=== PATIENT | female | born 1975 | race Two or more races ===

== ENCOUNTER 2017-05-14 16:06 | Emergency (ER) | payer BC ==
[~2017-05-14] VITALS: Ht 160 cm; Wt 72.6 kg
[~2017-05-14 16:06] MED LIST: ALPR0.5T PO; ALPR2TAB7 PO; FERR-38 PO; IBUP800T54 PO; THYR60TA2 PO; ZIPR20CA2 PO; [UNRECOGNIZED DRUG - OTHER]; [UNRECOGNIZED DRUG - OTHER]
[2017-05-14] MEDS ORDERED: HYDROMORPHONE 1 MG/1 ML DISP.SYRIN IM ONE ×2 (16:30→18:15)
[2017-05-14] MEDS ORDERED: PROMETHAZINE HCL 25 MG/1 ML VIAL IM ONE ×2 (16:30→18:15)
[2017-05-14] MEDS ORDERED: HYDROMORPHONE 2 MG/1 ML DISP.SYRIN ONE ×2 (16:47→18:36)
[2017-05-14] MEDS ORDERED: PROMETHAZINE HCL 25 MG/1 ML VIAL ONE ×2 (16:47→18:36)
[2017-05-14 16:54] LABS: *BILIRUBIN,URIN NEGATIVE (NEGATIVE); *BLOOD, URINE NEGATIVE (NEGATIVE); *CLARITY,URINE CLOUDY (CLEAR); *COLOR,URINE YELLOW (YELLOW); *KETONES,URINE NEGATIVE (NEGATIVE); *PROTEIN,URINE TRACE (NEGATIVE); *UROBILINOGEN,URINE 0.2 E.U./dl (NORMAL); LEUKOCYTE ESTERASE ,URINE 2+ (NEGATIVE); NITRITE, URINE NEGATIVE (NEGATIVE); UGLUCOSE NEGATIVE (NEGATIVE)
[2017-05-14 16:56] LABS: *URINE HCG, QUAL NEGATIVE (NEGATIVE)
[2017-05-14 17:04] LABS: BACTERIA,URINE MANY /HPF (NONE SEEN); MUCUS,URINE MODERATE /LPF (0-FEW); SQUAMOUS EPITHELIAL CELL,UR MODERATE /HPF (NONE SEEN); WBC,URINE 80-100 /HPF (0-3)
--- NOTE | 2017-05-14 17:06 | NUR ---
PT RESTING COMFORTABLY
[2017-05-14 17:08] LABS: BASOPHILS % (AUTO) 0.7 % (0.0-2.0); EOSINOPHILS # (AUTO) 0.2 K/uL (0.0-0.7); EOSINOPHILS % (AUTO) 3.2 % (0.0-7.0); HEMATOCRIT 28.5 % (31.2-41.9); HEMOGLOBIN 9.1 g/dL (10.9-14.3); LYMPHOCYTES # (AUTO) 2.3 K/uL (20.0-40.0); LYMPHOCYTES % (AUTO) 32.3 % (20.5-51.5); MEAN CORPUSCULAR HGB CONC 32 g/dL (32.3-35.6); MEAN CORPUSCULAR VOLUME 71.8 fL (75.5-95.3); MONOCYTES # (AUTO) 0.6 K/uL (2.0-10.0); MONOCYTES % (AUTO) 8.8 % (0.0-11.0); PLATELET COUNT (AUTO) 278 K/uL (179-408); RED BLOOD CELL COUNT(AUTO) 3.96 MIL/uL (3.63-4.92); WHITE BLOOD COUNT (AUTO) 7.2 K/uL (3.8-11.8)
[2017-05-14 17:38] LABS: BAND % (MANUAL) 3 % (0-10); EOSINOPHILS % (MANUAL) 3 % (0-8); LYMPHOCYTES % (MANUAL) 29 % (20-40); MONOCYTES % (MANUAL) 9 % (2-10); NEUTROPHILS % (MANUAL) 56 % (42-75)
[2017-05-14 18:29] VITALS: BP 140/83
--- NOTE | 2017-05-14 18:29 | NUR ---
Patient discharged to home in stable conditon. Written and verbal after care instructions given. Patient verbalizes understanding of instructions.
== END 2017-05-14 18:31 | disposition home or self-care (01) ==
LOC: ER 16:07
DX: N39.0 Urinary tract infection, site not specified (principal); B96.89 Other specified bacterial agents as the cause of diseases classified elsewhere; E03.9 Hypothyroidism, unspecified; M54.5 Low back pain; K21.9 Gastro-esophageal reflux disease without esophagitis; F17.200 Nicotine dependence, unspecified, uncomplicated; F42.9 Obsessive-compulsive disorder, unspecified
CPT/HCPCS: 36415; 72131; 73560; 84443; 84703; 85025; A4663; J1170; J2550

== ENCOUNTER 2017-07-31 23:03 | Emergency (ER) | payer BC ==
[~2017-07-31] VITALS: Ht 160 cm; Wt 68.0 kg
[2017-07-31 23:49] LABS: *BILIRUBIN,URIN NEGATIVE (NEGATIVE); *BLOOD, URINE NEGATIVE (NEGATIVE); *CLARITY,URINE CLEAR (CLEAR); *COLOR,URINE YELLOW (YELLOW); *KETONES,URINE TRACE (NEGATIVE); *PROTEIN,URINE TRACE (NEGATIVE); *UROBILINOGEN,URINE 0.2 E.U./dl (NORMAL); LEUKOCYTE ESTERASE ,URINE NEGATIVE (NEGATIVE); NITRITE, URINE NEGATIVE (NEGATIVE); UGLUCOSE NEGATIVE (NEGATIVE)
--- NOTE | 2017-07-31 23:50 | NUR ---
Dr. Toscano at bedside for MSE.
[2017-07-31 23:59] LABS: *URINE HCG, QUAL NEGATIVE (NEGATIVE); BACTERIA,URINE NONE SEEN /HPF (NONE SEEN); RBC,URINE NONE SEEN /HPF (0-3); SQUAMOUS EPITHELIAL CELL,UR MODERATE /HPF (NONE SEEN); WBC,URINE 0-3 /HPF (0-3)
--- NOTE | 2017-08-01 01:12 | NUR ---
Received report from lab, patient positive for influenza B, notified.
[2017-08-01] MEDS ORDERED: OSELTAMIVIR PHOSPHATE 75 MG CAPSULE ONE (01:42)
[2017-08-01] MEDS ORDERED: OSELTAMIVIR PHOSPHATE 75 MG CAPSULE PO ONE (01:45)
--- NOTE | 2017-08-01 01:52 | NUR ---
Patient discharged to home in stable conditon. Written and verbal after care instructions given. Patient verbalizes understanding of instructions. Patient ambulated out of ER with steady gait, lab records provided per patient request, VSS, no acute signs of distress.
[2017-08-01 01:53] VITALS: BP 120/79
== END 2017-08-01 01:54 | disposition home or self-care (01) ==
LOC: ER 23:09
DX: J10.1 Influenza due to other identified influenza virus with other respiratory manifestations (principal); K21.9 Gastro-esophageal reflux disease without esophagitis; E03.9 Hypothyroidism, unspecified; F17.210 Nicotine dependence, cigarettes, uncomplicated; Z79.1 Long term (current) use of non-steroidal anti-inflammatories (NSAID); Z79.899 Other long term (current) drug therapy
CPT/HCPCS: 36415; 71045; 84443; 84703; 87400; A4663

== ENCOUNTER 2017-10-09 18:43 | Emergency (ER) | payer BC ==
[~2017-10-09] VITALS: Ht 160 cm; Wt 68.9 kg
--- NOTE | 2017-10-09 19:04 | NUR ---
SBAR REPORT TO [place] [facility]
--- NOTE | 2017-10-09 19:08 | NUR ---
Dr. Sanders at bedside for MSE.
[2017-10-09] MEDS ORDERED: OXYCODONE/APAP 5-325 MG TABLET PO ONE ×2 (19:15→21:45)
[2017-10-09] MEDS ORDERED: VANCOMYCIN IV 1,000 MG in IV DEXTROSE 5% 250 ML IV ONE (19:15)
[2017-10-09] MEDS ORDERED: OXYCODONE/APAP 5-325 MG TABLET ONE ×2 (19:25→21:42)
[2017-10-09] MEDS ORDERED: VANCOMYCIN IV 200 ML ONE (19:26)
[2017-10-09] MEDS ORDERED: ONDANSETRON ODT 4 MG TAB.RAPDIS ONE (19:39)
[2017-10-09] MEDS ORDERED: ONDANSETRON ODT 4 MG TAB.RAPDIS SL ONE (19:45)
--- NOTE | 2017-10-09 20:40 | NUR ---
Pt states pain on both arms still around 7/10, has some nausea, but not to the point of vomiting.
[2017-10-09] MEDS ORDERED: ONDANSETRON 4 MG/2 ML VIAL IV ONE (20:45)
[2017-10-09] MEDS ORDERED: KETOROLAC TROMETHAMINE 30 MG INJ IVP ONE (20:45)
[2017-10-09] MEDS ORDERED: ONDANSETRON 4 MG/2 ML VIAL ONE (20:48)
[2017-10-09] MEDS ORDERED: KETOROLAC TROMETHAMINE 30 MG INJ ONE (20:49)
--- NOTE | 2017-10-09 21:30 | NUR ---
Patient concerned about increasing pain and redness on arms, reports has trouble getting pain medications in [facility], requesting for more pain meds and has some questions for the doctor. MD notified.
[2017-10-09] MEDS ORDERED: LIDOCAINE 5% PATCH TD ONE ×2 (21:42→21:45)
--- NOTE | 2017-10-09 21:47 | NUR ---
Patient discharged to home in stable conditon. Written and verbal after care instructions given. Patient verbalizes understanding of instructions. Patient ambulated out of ER with steady gait, no acute signs of distress, VSS, all belongings taken, IV site discontinued.
[2017-10-09 22:02] VITALS: BP 115/65
== END 2017-10-09 22:03 | disposition home or self-care (01) ==
LOC: ER 18:43
DX: L03.113 Cellulitis of right upper limb (principal); L03.114 Cellulitis of left upper limb; K21.9 Gastro-esophageal reflux disease without esophagitis; E03.9 Hypothyroidism, unspecified; F17.210 Nicotine dependence, cigarettes, uncomplicated; Z79.1 Long term (current) use of non-steroidal anti-inflammatories (NSAID); Z79.899 Other long term (current) drug therapy
CPT/HCPCS: 36415; 84443; A4663; J1885; J2405; J3370; Q0162

== ENCOUNTER 2017-10-12 21:56 | Emergency (ER) | payer SELFPAY ==
[~2017-10-12] VITALS: Ht 160 cm; Wt 68.0 kg
[~2017-10-12 21:56] MED LIST changes: -ALPR2TAB7 PO; -IBUP800T54 PO; -ZIPR20CA2 PO; -[UNRECOGNIZED DRUG - OTHER]; -[UNRECOGNIZED DRUG - OTHER]
--- NOTE | 2017-10-12 22:21 | NUR ---
Patient is AAox4. Able to speak in complete sentences. Responsive to verbal and tactile stimuli. Patient states she was given a prescription for Adderall 1 month ago. She began picking at her skin, and developed multiple areas of open skin to both arms. She has bilat. forearm abscess at this time. She was seen recently at this ER for the same issue, and was given antibiotics. The medication is helping the patient per her statement. She comes in now requesting I&D of both abscess , and requesting analgesics. Patient denies fevers, vomiting, nausea, chest pain, respiratory distress at this time. Respirations even and unlabored. no cardiovascular distress noted. no GI/ distress noted. Will continue to monitor patient.
[2017-10-12] MEDS ORDERED: SULFAMETH/TRIMETH 800/160 MG TABLET PO ONE (22:45)
[2017-10-12] MEDS ORDERED: LIDOCAINE HCL 1% 20 ML VIAL IJ ONE (22:45)
--- NOTE | 2017-10-12 22:46 | NUR ---
RANDOLPH LUJAN at bedside for I&D
--- NOTE | 2017-10-12 23:46 | NUR ---
I&D complete to both forearms. Patient sites cleaned, dry, wrapped with dry gauze
[2017-10-12] MEDS ORDERED: SULFAMETH/TRIMETH 800/160 MG TABLET ONE (23:47)
[2017-10-12] MEDS ORDERED: HYDROCODONE/APAP 10-325 MG TABLET ONE (23:54)
[2017-10-13] MEDS ORDERED: OXYCODONE/APAP 5-325 MG TABLET PO ONE
[2017-10-13] MEDS ORDERED: HYDROCODONE/APAP 10-325 MG TABLET PO ONE
--- NOTE | 2017-10-13 00:01 | NUR ---
Patient discharged to home in stable conditon. Written and verbal after care instructions given. Patient verbalizes understanding of instructions. Ambulated from Er with stable gait. All belongings with patient. Patient to be driven home by in private vehicle.
[2017-10-13] MEDS ORDERED: OXYCODONE/APAP 5-325 MG TABLET ONE (00:02)
[2017-10-13 00:03] VITALS: BP 137/82
== END 2017-10-13 00:07 | disposition home or self-care (01) ==
LOC: ER 21:58
DX: L02.414 Cutaneous abscess of left upper limb (principal); L02.413 Cutaneous abscess of right upper limb; E03.9 Hypothyroidism, unspecified; K21.9 Gastro-esophageal reflux disease without esophagitis; F17.200 Nicotine dependence, unspecified, uncomplicated
CPT/HCPCS: A4663; J3490

== ENCOUNTER 2017-10-14 20:08 | Emergency (ER) | payer SELFPAY ==
[~2017-10-14] VITALS: Ht 160 cm; Wt 65.8 kg
--- NOTE | 2017-10-14 20:34 | NUR ---
RANDOLPH LUJAN AT BEDSIDE FOR MSE.
[2017-10-14] MEDS ORDERED: LORAZEPAM 1 MG TABLET ONE (20:43)
[2017-10-14] MEDS ORDERED: MORPHINE SULFATE 4 MG/1 ML DISP.SYRIN ONE ×2 (20:44→21:28)
[2017-10-14] MEDS ORDERED: LORAZEPAM 0.5 MG TABLET PO ONE (20:45)
[2017-10-14] MEDS ORDERED: MORPHINE SULFATE 4 MG/1 ML DISP.SYRIN IM ONE ×2 (20:45→21:15)
[2017-10-14] MEDS ORDERED: LIDOCAINE HCL 2% 20 ML VIAL TP ONE (20:45)
--- NOTE | 2017-10-14 20:50 | NUR ---
I&D SET UP AT BEDSIDE.
--- NOTE | 2017-10-14 20:58 | NUR ---
RANDOLPH LUJAN AT BEDSIDE.
--- NOTE | 2017-10-14 21:49 | NUR ---
Patient discharged to home in stable conditon. Written and verbal after care instructions given. Patient verbalizes understanding of instructions. Patient left ER and walks in steady gait. Accompanied by mother who will drive home. All belongings with pt. VSS. No acute distress noted.
[2017-10-14 21:51] VITALS: BP 133/71
== END 2017-10-14 21:30 | disposition home or self-care (01) ==
LOC: ER 20:10
DX: L03.114 Cellulitis of left upper limb (principal); F17.200 Nicotine dependence, unspecified, uncomplicated
CPT/HCPCS: A4217; A4663; J2270

== ENCOUNTER 2020-05-21 21:54 | Emergency (ER) | payer MEDICAID, OTHER ==
[~2020-05-21] VITALS: Ht 160 cm; Wt 90.7 kg
[2020-05-21] MEDS ORDERED: LEVO125C4 PO (22:10)
[2020-05-21] MEDS ORDERED: VENL150C2 PO (22:10)
[2020-05-21] MEDS ORDERED: OLAN10TA3 PO (22:10)
[2020-05-21] MEDS ORDERED: ONDANSETRON 4 MG/2 ML VIAL IV ONE (22:45)
[2020-05-21] MEDS ORDERED: MORPHINE SULFATE 2 MG/1 ML DISP.SYRIN IV ONE (22:45)
[2020-05-21] MEDS ORDERED: IV NORMAL SALINE 1000 ML BAG IV ONE (22:45)
[2020-05-21 22:59] LABS: *BILIRUBIN,URIN NEGATIVE (NEGATIVE); *BLOOD, URINE NEGATIVE (NEGATIVE); *CLARITY,URINE CLEAR (CLEAR); *COLOR,URINE YELLOW (YELLOW); *KETONES,URINE TRACE (NEGATIVE); *UROBILINOGEN,URINE 0.2 E.U./dl (NORMAL); LEUKOCYTE ESTERASE ,URINE NEGATIVE (NEGATIVE); NITRITE, URINE NEGATIVE (NEGATIVE); UGLUCOSE NEGATIVE (NEGATIVE)
[2020-05-21] MEDS ORDERED: MORPHINE SULFATE 4 MG/1 ML DISP.SYRIN ONE (23:00)
[2020-05-21] MEDS ORDERED: ONDANSETRON 4 MG/2 ML VIAL ONE (23:00)
[2020-05-21 23:09] LABS: *URINE HCG, QUAL NEGATIVE (NEGATIVE)
[2020-05-21 23:11] LABS: RBC,URINE 0-3 /HPF (0-3)
[2020-05-21 23:12] LABS: BACTERIA,URINE NONE SEEN /HPF (NONE SEEN); SQUAMOUS EPITHELIAL CELL,UR MODERATE /HPF (NONE SEEN)
[2020-05-21 23:15] LABS: BILIRUBIN,DIRECT 0.1 mg/dL (0.0-0.2); BILIRUBIN,TOTAL 0.2 mg/dL (0.2-1.0); CREATININE 1.1 mg/dL (0.6-1.3); TOTAL PROTEIN, SERUM 7.8 g/dL (6.4-8.2)
[2020-05-21 23:23] LABS: BASOPHILS % (AUTO) 0.6 % (0.0-2.0); EOSINOPHILS # (AUTO) 0.1 K/uL (0.0-0.7); EOSINOPHILS % (AUTO) 0.8 % (0.0-7.0); HEMATOCRIT 31.1 % (31.2-41.9); LYMPHOCYTES # (AUTO) 1.5 K/uL (20.0-40.0); LYMPHOCYTES % (AUTO) 20.2 % (20.5-51.5); MEAN CORPUSCULAR HEMOGLOBIN 22.1 uug (24.7-32.8); MEAN CORPUSCULAR HGB CONC 32 g/dL (32.3-35.6); MEAN CORPUSCULAR VOLUME 68.9 fL (75.5-95.3); MONOCYTES # (AUTO) 0.5 K/uL (2.0-10.0); NEUTROPHILS # (AUTO) 5.4 K/uL (1.8-8.9); NEUTROPHILS % (AUTO) 71.4 % (38.5-71.5); PLATELET COUNT (AUTO) 297 K/uL (179-408); RED BLOOD CELL COUNT(AUTO) 4.52 MIL/uL (3.63-4.92); WHITE BLOOD COUNT (AUTO) 7.6 K/uL (3.8-11.8)
[2020-05-21] MEDS ORDERED: KETOROLAC TROMETHAMINE 30 MG INJ IVP ONE (23:45)
[2020-05-21] MEDS ORDERED: KETOROLAC TROMETHAMINE 30 MG INJ ONE (23:52)
[2020-05-22] MEDS ORDERED: MORPHINE SULFATE 4 MG/1 ML DISP.SYRIN IV ONE (00:15)
[2020-05-22] MEDS ORDERED: MORPHINE SULFATE 4 MG/1 ML DISP.SYRIN ONE (00:25)
[2020-05-22] MEDS ORDERED: MORPHINE SULFATE 2 MG/1 ML DISP.SYRIN ONE (00:26)
[2020-05-22] MEDS ORDERED: OXYCODONE/APAP 5-325 MG TABLET PO ONE (00:45)
[2020-05-22] MEDS ORDERED: OXYCODONE/APAP 5-325 MG TABLET ONE (00:54)
--- NOTE | 2020-05-22 01:00 | NUR ---
IV removed. Catheter intact and site benign. Pressure and 4x4 gauze applied to site. No bleeding noted.
--- NOTE | 2020-05-22 01:08 | NUR ---
Patient discharged to home in stable condition with taking patient home. Written and verbal after care instructions given. Patient verbalizes understanding of instructions. Stressed follow up or return to ER for worsening s/s.
[2020-05-22 01:09] VITALS: BP 100/67
[2020-05-22 04:40] LABS: LYMPHOCYTES % (MANUAL) 15 % (20-40); MONOCYTES % (MANUAL) 7 % (2-10); NEUTROPHILS % (MANUAL) 78 % (42-75)
== END 2020-05-22 01:10 | disposition home or self-care (01) ==
LOC: ER 21:57
DX: R10.11 Right upper quadrant pain (principal); N20.0 Calculus of kidney; K76.0 Fatty (change of) liver, not elsewhere classified; Z84.1 Family history of disorders of kidney and ureter; R00.0 Tachycardia, unspecified; D64.9 Anemia, unspecified; E03.9 Hypothyroidism, unspecified; Z79.890 Hormone replacement therapy; K21.9 Gastro-esophageal reflux disease without esophagitis; F42.9 Obsessive-compulsive disorder, unspecified; F41.9 Anxiety disorder, unspecified
CPT/HCPCS: 36415; 76705; 80048; 80076; 81001; 83690; 84443; 84484; 84703; 85007; 85025; 93005; 96361; 96374; 96375; 96376; 99285; J1885; J2270 ×3; J2405; 70030-TC; A4663; J7030

== ENCOUNTER 2020-10-30 15:51 | Emergency (ER) | payer MEDICAID, OTHER ==
[~2020-10-30] VITALS: Ht 160 cm; Wt 90.7 kg
[~2020-10-30 15:51] MED LIST changes: -FERR-38 PO; +LEVO125C4 PO; +OLAN10TA3 PO; -THYR60TA2 PO; +VENL150C2 PO
--- NOTE | 2020-10-30 16:05 | NUR ---
at bedside to examine pt. Pt's mother at bedside.
[2020-10-30] MEDS ORDERED: IV NORMAL SALINE 1000 ML BAG IV ONE (16:15)
[2020-10-30] MEDS ORDERED: HYDROMORPHONE 1 MG/1 ML DISP.SYRIN IV ONE ×2 (16:15→17:30)
[2020-10-30] MEDS ORDERED: ONDANSETRON 4 MG/2 ML VIAL IV ONE ×2 (16:15→17:30)
[2020-10-30] MEDS ORDERED: KETOROLAC TROMETHAMINE 15 MG INJ IVP ONE (16:15)
[2020-10-30] MEDS ORDERED: KETOROLAC TROMETHAMINE 30 MG INJ ONE (16:20)
[2020-10-30] MEDS ORDERED: ONDANSETRON 4 MG/2 ML VIAL ONE ×2 (16:21→17:35)
[2020-10-30] MEDS ORDERED: HYDROMORPHONE 2 MG/1 ML DISP.SYRIN ONE ×2 (16:21→17:34)
[2020-10-30 16:40] LABS: BASOPHILS % (AUTO) 0.5 % (0.0-2.0); EOSINOPHILS % (AUTO) 0.5 % (0.0-7.0); HEMATOCRIT 40.3 % (31.2-41.9); HEMOGLOBIN 13.2 g/dL (10.9-14.3); LYMPHOCYTES # (AUTO) 2.4 K/uL (20.0-40.0); LYMPHOCYTES % (AUTO) 26.8 % (20.5-51.5); MEAN CORPUSCULAR HEMOGLOBIN 27.2 uug (24.7-32.8); MEAN CORPUSCULAR HGB CONC 33 g/dL (32.3-35.6); MEAN CORPUSCULAR VOLUME 82.9 fL (75.5-95.3); MONOCYTES # (AUTO) 0.6 K/uL (2.0-10.0); MONOCYTES % (AUTO) 6.5 % (0.0-11.0); NEUTROPHILS # (AUTO) 5.8 K/uL (1.8-8.9); NEUTROPHILS % (AUTO) 65.7 % (38.5-71.5); PLATELET COUNT (AUTO) 377 K/uL (179-408); RED BLOOD CELL COUNT(AUTO) 4.86 MIL/uL (3.63-4.92); WHITE BLOOD COUNT (AUTO) 8.8 K/uL (3.8-11.8)
[2020-10-30 16:43] LABS: CREATININE 1.6 mg/dL (0.6-1.3); POTASSIUM 3.8 mmol/L (3.5-5.1)
[2020-10-30 16:48] LABS: BILIRUBIN,DIRECT 0.1 mg/dL (0.0-0.2); BILIRUBIN,TOTAL 0.2 mg/dL (0.2-1.0); TOTAL PROTEIN, SERUM 7.8 g/dL (6.4-8.2)
[2020-10-30 16:49] LABS: *BILIRUBIN,URIN NEGATIVE (NEGATIVE); *BLOOD, URINE NEGATIVE (NEGATIVE); *CLARITY,URINE CLEAR (CLEAR); *COLOR,URINE YELLOW (YELLOW); *KETONES,URINE NEGATIVE (NEGATIVE); *URINE HCG, QUAL NEGATIVE (NEGATIVE); *UROBILINOGEN,URINE 0.2 E.U./dl (NORMAL); LEUKOCYTE ESTERASE ,URINE NEGATIVE (NEGATIVE); NITRITE, URINE NEGATIVE (NEGATIVE); UGLUCOSE NEGATIVE (NEGATIVE)
--- NOTE | 2020-10-30 17:23 | NUR ---
Patient taken down to CT.
--- NOTE | 2020-10-30 17:30 | NUR ---
Patient back from CT.
--- NOTE | 2020-10-30 18:09 | NUR ---
dcd instructions with prescription provided to pt. who left room AAOx4. Addendum: 10/30/20 at 1829 by JEMMA pt remains in the room with c/of pain and nausea to MD.
--- NOTE | 2020-10-30 18:24 | NUR ---
before been dcd home pt. requesting more pain medication and zofran for nausea, medicated as ordered.
[2020-10-30] MEDS ORDERED: ONDANSETRON ODT 4 MG TAB.RAPDIS SL ONE (18:30)
[2020-10-30] MEDS ORDERED: ONDANSETRON ODT 4 MG TAB.RAPDIS ONE (18:30)
--- NOTE | 2020-10-30 18:36 | NUR ---
patient requesting prescription for nausea.
== END 2020-10-30 18:37 | disposition home or self-care (01) ==
LOC: ER 15:52
DX: R10.9 Unspecified abdominal pain (principal); K57.30 Diverticulosis of large intestine without perforation or abscess without bleeding; K43.9 Ventral hernia without obstruction or gangrene; Z97.5 Presence of (intrauterine) contraceptive device; E03.9 Hypothyroidism, unspecified; Z79.890 Hormone replacement therapy; K21.9 Gastro-esophageal reflux disease without esophagitis; Z84.1 Family history of disorders of kidney and ureter; F41.9 Anxiety disorder, unspecified; F42.9 Obsessive-compulsive disorder, unspecified; Z87.442 Personal history of urinary calculi; Z79.899 Other long term (current) drug therapy
CPT/HCPCS: 36415; 74176; 80048; 80076; 81003; 83690; 84443; 84703; 85025; 96361; 96374; 96375; 96376; 99284; J1170 ×2; J1885; J2405 ×2; A4663; J7030; Q0162

== ENCOUNTER 2021-01-06 19:42 | Emergency (ER) | payer MEDICAID ==
[~2021-01-06] VITALS: Ht 160 cm; Wt 95.3 kg
--- NOTE | 2021-01-06 20:15 | NUR ---
Pt. c/o headache, body aches and anxiety past 2 days. Pt. denies cough, sob, fever, or other symptoms. Pt. afebrile.
[2021-01-06] MEDS ORDERED: MORPHINE SULFATE 4 MG/1 ML DISP.SYRIN IV ONE (20:30)
[2021-01-06] MEDS ORDERED: IV NORMAL SALINE 1000 ML BAG IV ONE (20:30)
[2021-01-06] MEDS ORDERED: MORPHINE SULFATE 4 MG/1 ML DISP.SYRIN ONE (20:43)
[2021-01-06 21:06] LABS: *BILIRUBIN,URIN NEGATIVE (NEGATIVE); *BLOOD, URINE 1+ (NEGATIVE); *CLARITY,URINE CLEAR (CLEAR); *COLOR,URINE YELLOW (YELLOW); *KETONES,URINE NEGATIVE (NEGATIVE); *UROBILINOGEN,URINE 0.2 E.U./dl (NORMAL); LEUKOCYTE ESTERASE ,URINE NEGATIVE (NEGATIVE); NITRITE, URINE NEGATIVE (NEGATIVE); PH,URINE 5.5 (5.0-8.0); UGLUCOSE NEGATIVE (NEGATIVE)
[2021-01-06 21:16] LABS: *AMPHETAMINE, URINE NEGATIVE (NEGATIVE); *CANNABINOID, URINE POSITIVE (NEGATIVE); *COCCAINE, URINE NEGATIVE (NEGATIVE); *OPIATE, URINE NEGATIVE (NEGATIVE); *PHENCYCLIDINE SCREEN,URINE NEGATIVE (NEGATIVE)
[2021-01-06 21:19] LABS: HEMATOCRIT 40.3 % (31.2-41.9); MEAN CORPUSCULAR HEMOGLOBIN 30.1 uug (24.7-32.8); MEAN CORPUSCULAR VOLUME 88.6 fL (75.5-95.3); PLATELET COUNT (AUTO) 348 K/uL (179-408)
[2021-01-06 21:20] LABS: CREATININE 0.8 mg/dL (0.6-1.3); POTASSIUM 3.3 mmol/L (3.5-5.1)
[2021-01-06 21:24] LABS: BACTERIA,URINE NONE SEEN /HPF (NONE SEEN); WBC,URINE 0-3 /HPF (0-3)
[2021-01-06 21:25] LABS: BILIRUBIN,DIRECT 0.1 mg/dL (0.0-0.2); BILIRUBIN,TOTAL 0.2 mg/dL (0.2-1.0); TOTAL PROTEIN, SERUM 7.4 g/dL (6.4-8.2)
--- NOTE | 2021-01-06 21:36 | NUR ---
Lab called w/ PHIL value of 0.15. Pt. stated she took 1 beer this AM and xanax last night.
[2021-01-06 21:54] LABS: THYROID STIMULATING HORMONE 40.946 mIU/mL (0.358-3.740)
[2021-01-06] MEDS ORDERED: FOLIC ACID 5 MG/ML VIAL IV ONE ×2 (23:00→23:16)
[2021-01-06] MEDS ORDERED: POTASSIUM CHLORIDE 20 MEQ TAB.PRT.SR PO ONE (23:00)
[2021-01-06] MEDS ORDERED: MAGNESIUM SULFATE/D5W 100 ML IV SCH (23:00)
[2021-01-06] MEDS ORDERED: IV NS 1000 ML 1,000 ML IV ONE (23:00)
[2021-01-06] MEDS ORDERED: THIAMINE HCL 200 MG/2 ML VIAL IV ONE (23:00)
[2021-01-06] MEDS ORDERED: MAGNESIUM SULFATE/D5W 100 ML ONE ×2 (23:15→23:42)
[2021-01-06] MEDS ORDERED: THIAMINE HCL 200 MG/2 ML VIAL ONE (23:15)
[2021-01-06] MEDS ORDERED: POTASSIUM CHLORIDE 20 MEQ TAB.PRT.SR ONE (23:15)
--- NOTE | 2021-01-06 23:35 | NUR ---
Pt. resting in bed, dozing intermittently. Pts. spo2 was dropping intermittently to 92-93% on room air. Pts. current sp02 maintained at 100% on 1L oxygen nasal cannula.
--- NOTE | 2021-01-07 00:48 | NUR ---
Patient discharged to home in stable condition. Written and verbal after care instructions given. Patient verbalizes understanding of instructions. Stressed follow up or return to ER for worsening s/s. Pt. walks with steady gait. No signs of distress. Vss. All belongings taken.
[2021-01-07 01:22] VITALS: BP 138/79
== END 2021-01-07 00:48 | disposition home or self-care (01) ==
LOC: ER 19:46
DX: M79.10 Myalgia, unspecified site (principal); F10.129 Alcohol abuse with intoxication, unspecified; Y90.6 Blood alcohol level of 120-199 mg/100 ml; E03.9 Hypothyroidism, unspecified; E87.6 Hypokalemia; Z20.822 Contact with and (suspected) exposure to COVID-19
CPT/HCPCS: 36415; 80048; 80076; 80307; 80320; 81001; 82550; 83690; 84439; 84443; 84702; 85025; 87426; 93005; 96361; 96374; 96375; 99285; J2270; J3411; J3475 ×2; J3490; G0480

== ENCOUNTER 2021-05-13 17:06 | Emergency (ER) | payer MEDICAID ==
[~2021-05-13] VITALS: Ht 160 cm; Wt 95.3 kg
--- NOTE | 2021-05-13 17:27 | NUR ---
DR LINK AT BEDSIDE FOR EVAL.
[2021-05-13] MEDS ORDERED: ONDANSETRON ODT 4 MG TAB.RAPDIS SL ONE (17:30)
[2021-05-13] MEDS ORDERED: ASPIRIN 325 MG TABLET PO ONE (17:30)
[2021-05-13] MEDS ORDERED: ONDANSETRON ODT 4 MG TAB.RAPDIS ONE (17:39)
[2021-05-13] MEDS ORDERED: ASPIRIN 325 MG TABLET ONE (17:39)
[2021-05-13 18:07] LABS: HEMATOCRIT 37.7 % (31.2-41.9); MEAN CORPUSCULAR HEMOGLOBIN 28.3 uug (24.7-32.8); MEAN CORPUSCULAR VOLUME 84.5 fL (75.5-95.3); PLATELET COUNT (AUTO) 297 K/uL (179-408)
[2021-05-13] MEDS ORDERED: BUPR300T52 PO (18:08)
[2021-05-13] MEDS ORDERED: LITH150C PO (18:08)
[2021-05-13 18:22] LABS: CREATININE 0.8 mg/dL (0.6-1.3); POTASSIUM 3.7 mmol/L (3.5-5.1)
[2021-05-13] MEDS ORDERED: CLOB15CR4 TP (19:10)
[2021-05-13] MEDS ORDERED: ONDA4TAB5 GT (19:10)
[2021-05-13] MEDS ORDERED: HYDROMORPHONE 2 MG/1 ML DISP.SYRIN ONE (19:14)
[2021-05-13 19:15] VITALS: BP 131/81
[2021-05-13] MEDS ORDERED: HYDROMORPHONE 1 MG/1 ML DISP.SYRIN IM ONE (19:15)
--- NOTE | 2021-05-13 19:15 | NUR ---
Patient discharged to home in stable condition. Written and verbal after care instructions given. Patient verbalizes understanding of instructions. Stressed follow up or return to ER for worsening s/s.
== END 2021-05-13 19:27 | disposition home or self-care (01) ==
LOC: ER 17:07
DX: R07.9 Chest pain, unspecified (principal); F17.210 Nicotine dependence, cigarettes, uncomplicated; F41.9 Anxiety disorder, unspecified; E03.9 Hypothyroidism, unspecified; Z98.84 Bariatric surgery status; Z79.890 Hormone replacement therapy; Z79.899 Other long term (current) drug therapy
CPT/HCPCS: 36415; 71045; 80048; 84484; 85025; 93005; 96372; 99285; J1170; 70030-TC; A4663; Q0162

== ENCOUNTER 2022-02-16 21:54 | Inpatient (IN) | payer MEDICAID ==
[~2022-02-16] VITALS: Ht 160 cm; Wt 81.6 kg
[~2022-02-16 21:54] MED LIST changes: +BUPR300T52 PO; +CLOB15CR4 TP; +LITH150C PO; -OLAN10TA3 PO; +ONDA4TAB5 GT; -VENL150C2 PO
[2022-02-16] MEDS ORDERED: ONDANSETRON HCL 4 MG TABLET ONE (22:44)
[2022-02-16] MEDS ORDERED: ONDANSETRON HCL 4 MG TABLET PO ONE (22:45)
[2022-02-16] MEDS ORDERED: MORPHINE SULFATE 2 MG/1 ML DISP.SYRIN ONE (22:45)
[2022-02-16] MEDS ORDERED: MORPHINE SULFATE 10 MG/1 ML DISP.SYRIN IM ONE (22:45)
[2022-02-16] MEDS ORDERED: MORPHINE SULFATE 4 MG/1 ML DISP.SYRIN ONE (22:45)
[2022-02-16 22:51] LABS: MEAN CORPUSCULAR HEMOGLOBIN 26.6 uug (24.7-32.8); PLATELET COUNT (AUTO) 320 K/uL (179-408)
[2022-02-16 23:09] LABS: *MONOTEST NEGATIVE (NEGATIVE)
[2022-02-16 23:17] LABS: BILIRUBIN,TOTAL 0.2 mg/dL (0.2-1.0); CREATININE 1.1 mg/dL (0.6-1.3); POTASSIUM 3.9 mmol/L (3.5-5.1); TOTAL PROTEIN, SERUM 7.5 g/dL (6.4-8.2)
[2022-02-16] MEDS ORDERED: CEFTRIAXONE 2 G in IV DEXTROSE 5% 100 ML IV ONE (23:30)
[2022-02-16] MEDS ORDERED: IV NS 1000 ML 1,000 ML IV ONE (23:30)
[2022-02-16] MEDS ORDERED: MORPHINE SULFATE 4 MG/1 ML DISP.SYRIN IV ONE (23:30)
[2022-02-16] MEDS ORDERED: METRONIDAZOLE 500 MG/NS 100 ML PIGGYBACK IV ONE (23:30)
[2022-02-16] MEDS ORDERED: CEFTRIAXONE /D5W 50ML IVPB **ER PYXIS IV ONE (23:32)
[2022-02-16] MEDS ORDERED: METRONIDAZOLE 500 MG/NS 100ML 100 ML IV ONE (23:32)
[2022-02-17] MEDS ORDERED: MORPHINE SULFATE 4 MG/1 ML DISP.SYRIN ONE ×2 (00:08→03:31)
[2022-02-17] MEDS ORDERED: MORPHINE SULFATE 10 MG/1 ML DISP.SYRIN IV ONE ×2 (00:15→03:30)
[2022-02-17] MEDS ORDERED: CEFTRIAXONE /D5W 50ML IVPB **ER PYXIS IV ONE (01:17)
--- NOTE | 2022-02-17 01:30 | NUR ---
Paged [employer] panel billing collections specialist, waiting for Carlos Alberto Dillon NP to call back.
[2022-02-17] MEDS ORDERED: MAGNESIUM HYDROXIDE 30 ML LIQUID UDC PO PRN (01:45)
[2022-02-17] MEDS ORDERED: ACETAMINOPHEN 325 MG TABLET PO PRN (01:45)
[2022-02-17] MEDS ORDERED: REMEDY ESSENTIAL ZINC PASTE 113 GM TP PRN (01:45)
--- NOTE | 2022-02-17 01:46 | NUR ---
Carlos Alberto Dillon accept patient to med surg
[2022-02-17] MEDS ORDERED: ALPRAZOLAM 0.25 MG TABLET PO PRN (02:00)
--- NOTE | 2022-02-17 03:40 | NUR ---
Transfered to 3rd floor via wheelchair with no distress noted.
--- NOTE | 2022-02-17 03:50 | NUR ---
received patient from ER via wheelchair AAOX4/MAEX4.on room air no respiratory distress noted breathing even unlabored .noted right and left neck area swelling. oriented patient to room and equipment .belonging inventory done and data collected form patient for admission .
[2022-02-17 04:00] VITALS: BP 127/77
--- NOTE | 2022-02-17 04:05 | NUR ---
called [facility] acquisition marketing manager patient temp was 102.1 F via orally. spoked with Carlos Alberto Dillon RIB BUILDER WITH ORDERS .
[2022-02-17] MEDS ORDERED: IBUPROFEN 600 MG TABLET PO PRN (04:15)
--- NOTE | 2022-02-17 04:40 | NUR ---
PATIENT REFUSED TYLENOL FOR HER TEMPERATURE BUT PREFERRED MOTRIN INSTEAD FOR HER FEVER .
[2022-02-17] MEDS: LEVOTHYROXINE SODIUM 150 MCG TABLET PO SCH (06:12)
[2022-02-17] MEDS: PANTOPRAZOLE SODIUM 40 MG TABLET.DR PO SCH (06:12)
--- NOTE | 2022-02-17 06:20 | NUR ---
PATIENT CALLED AND REQUESTING FOR PAIN MEDICATION .GIVEN PRN MORPHINE FOR PAIN SEE EMAR .
[2022-02-17] MEDS: MORPHINE SULFATE 2 MG/1 ML DISP.SYRIN IV PRN ×6 (06:31→21:20)
[2022-02-17] MEDS ORDERED: LITH300C2 PO (07:24)
[2022-02-17] MEDS ORDERED: LITHIUM CARBONATE 150 MG CAPSULE PO SCH (09:00)
[2022-02-17] MEDS ORDERED: buPROPion XL 150 MG TAB.SR.24H PO SCH (09:00)
[2022-02-17] MEDS ORDERED: LITHIUM CARBONATE 300 MG CAPSULE PO SCH (09:00)
[2022-02-17 09:06] LABS: CREATININE 1.1 mg/dL (0.6-1.3); POTASSIUM 4.1 mmol/L (3.5-5.1)
[2022-02-17 09:12] LABS: BILIRUBIN,TOTAL 0.2 mg/dL (0.2-1.0); TOTAL PROTEIN, SERUM 7.7 g/dL (6.4-8.2)
[2022-02-17] MEDS ORDERED: SWABABLE VALVE TRANSFER SET EA MC ONE (09:20)
[2022-02-17] MEDS ORDERED: IOHEXOL 300MG/ML 100 ML INFUS..BTL ONE (09:20)
[2022-02-17] MEDS ORDERED: IV NORMAL SALINE 250 ML IV ONE (09:20)
[2022-02-17 09:22] LABS: HEMATOCRIT 38.6 % (31.2-41.9); MEAN CORPUSCULAR HEMOGLOBIN 26.5 uug (24.7-32.8); MEAN CORPUSCULAR VOLUME 80.6 fL (75.5-95.3); PLATELET COUNT (AUTO) 392 K/uL (179-408)
[2022-02-17] MEDS ORDERED: ALPRAZOLAM 0.5 MG TABLET PO PRN (11:15)
[2022-02-17 12:00] VITALS: BP 125/53
[2022-02-17] MEDS: NICOTINE 21 MG/24HR PATCH TD SCH (12:00)
[2022-02-17] MEDS ORDERED: LURA80TA PO (13:12)
[2022-02-17] MEDS ORDERED: DULO30CA2 PO (13:12)
[2022-02-17] MEDS ORDERED: TRAZ-257 PO (13:12)
[2022-02-17] MEDS ORDERED: CHLO25CA22 PO (13:12)
[2022-02-17] MEDS: CEFEPIME HCL 2 G in IV DEXTROSE 5% 100 ML IV SCH ×3 (13:40→20:09)
[2022-02-17 16:10] VITALS: BP 127/73
--- NOTE | 2022-02-17 16:11 | NUR ---
46 year old female came in last night with frontal headache, fever, and sore throat. Dx: Pharyngitis-intraceable pain. She is alert and orient x4, breathing normal on room air. She is on regular diet, however, due to pain on throat patient is not able to swallow regular food so a new order placed for Pureed diet. Dietary is aware. She is ambulatory with minimal assist. Hep-lock on right arm. Patient taken down today for CT-neck w/contrast. New orders for Chlmydia and gnorrhea throat swab. Swab was sent down to lab. New order for Nicotine 21mg daily due to patient smokes a pack of cigarettes a day. WBC 18.5. Morphine 4mg has been provided for pain q4hrs. Patient is in bed resting comfortably.
[2022-02-17] MEDS ORDERED: ONDANSETRON ODT 4 MG TAB.RAPDIS SL PRN (19:45)
[2022-02-17 20:00] VITALS: BP 104/55
[2022-02-17] MEDS ORDERED: CEFTRIAXONE 2 G in IV DEXTROSE 5% 100 ML IV SCH (21:00)
[2022-02-18] MEDS: MORPHINE SULFATE 2 MG/1 ML DISP.SYRIN IV PRN ×2 (01:51→06:18)
[2022-02-18] MEDS: CEFEPIME HCL 2 G in IV DEXTROSE 5% 100 ML IV SCH ×2 (03:43→12:15)
[2022-02-18 04:00] VITALS: BP 100/59
[2022-02-18] MEDS: PANTOPRAZOLE SODIUM 40 MG TABLET.DR PO SCH (06:18)
[2022-02-18] MEDS: LEVOTHYROXINE SODIUM 150 MCG TABLET PO SCH (06:18)
[2022-02-18 07:38] LABS: HEMATOCRIT 35.8 % (31.2-41.9); MEAN CORPUSCULAR HEMOGLOBIN 26.5 uug (24.7-32.8); MEAN CORPUSCULAR VOLUME 80.3 fL (75.5-95.3); PLATELET COUNT (AUTO) 301 K/uL (179-408)
[2022-02-18 08:08] LABS: CREATININE 0.9 mg/dL (0.6-1.3); POTASSIUM 3.8 mmol/L (3.5-5.1)
[2022-02-18 08:12] LABS: BILIRUBIN,TOTAL 0.2 mg/dL (0.2-1.0); TOTAL PROTEIN, SERUM 7.6 g/dL (6.4-8.2)
[2022-02-18] MEDS ORDERED: MORPHINE SULFATE 4 MG/1 ML DISP.SYRIN IV PRN (08:15)
[2022-02-18] MEDS ORDERED: buPROPion XL 150 MG TAB.SR.24H PO SCH (09:00)
[2022-02-18] MEDS ORDERED: LITHIUM CARBONATE 300 MG CAPSULE PO SCH (09:00)
[2022-02-18] MEDS: NICOTINE 21 MG/24HR PATCH TD SCH (09:12)
[2022-02-18 12:00] VITALS: BP 101/60
--- NOTE | 2022-02-18 12:45 | NUR ---
IV atb therapy in progress, No A/R noted; oral fluids taken well. Pending throat cultures for chlamydia & Gonorrhea done on 02/17/22 (as per Kylie, ammunition assembly ii laborer.) it'll take 72hours for results to come back., This AM (02/18/22) nare culture for influenza and MRSA were sent to lab as ordered by . with pending results as well,.
[2022-02-18] MEDS ORDERED: AMOX1TAB16 PO (13:56)
[2022-02-18] MEDS ORDERED: METRONIDAZOLE 500 MG TABLET PO ONE (14:30)
[2022-02-18] MEDS ORDERED: AZITHROMYCIN 250 MG TABLET PO ONE (14:30)
[2022-02-18 15:14] LABS: *URINE HCG, QUAL NEGATIVE (NEGATIVE)
[2022-02-18 15:37] VITALS: BP 105/63
[2022-02-18] MEDS ORDERED: CEFTRIAXONE 2 G in IV DEXTROSE 5% 100 ML IV SCH (20:00)
== END 2022-02-18 15:45 | disposition home or self-care (01) | DRG 720 ==
LOC: ER 21:54 → MEDSURG3 02-17 03:33
PROVIDERS: ADMIT Internal Medicine; ATTEND Registered Nurse
DX: A41.9 Sepsis, unspecified organism (principal); E03.9 Hypothyroidism, unspecified; F41.9 Anxiety disorder, unspecified; F42.9 Obsessive-compulsive disorder, unspecified; K21.9 Gastro-esophageal reflux disease without esophagitis; Z98.84 Bariatric surgery status; F31.9 Bipolar disorder, unspecified; J02.0 Streptococcal pharyngitis; Z86.19 Personal history of other infectious and parasitic diseases; Z20.822 Contact with and (suspected) exposure to COVID-19
CPT/HCPCS: 36415; 70491; 83735; 84703; 85025; 86308; 86403; 86592; 87040; 87070; 87400; 87536; 87806; A4663; G0378; J0692; J0696; J2270; J3490; Q0144; Q0162; Q9967

== ENCOUNTER 2022-08-03 10:34 | Emergency (ER) | payer MEDICAID ==
[~2022-08-03] VITALS: Ht 160 cm; Wt 88.5 kg
[~2022-08-03 10:34] MED LIST changes: -ALPR0.5T PO; +AMOX1TAB16 PO; +CHLO25CA22 PO; -CLOB15CR4 TP; +DULO30CA2 PO; -LITH150C PO; +LITH300C2 PO; +LURA80TA PO; -ONDA4TAB5 GT; +TRAZ-257 PO
[2022-08-03 11:03] LABS: HEMATOCRIT 43.6 % (31.2-41.9); MEAN CORPUSCULAR HEMOGLOBIN 26.9 uug (24.7-32.8); MEAN CORPUSCULAR VOLUME 81.6 fL (75.5-95.3); PLATELET COUNT (AUTO) 433 K/uL (179-408)
[2022-08-03 11:06] LABS: *BILIRUBIN,URIN NEGATIVE (NEGATIVE); *BLOOD, URINE 2+ (NEGATIVE); *CLARITY,URINE CLEAR (CLEAR); *COLOR,URINE YELLOW (YELLOW); *KETONES,URINE NEGATIVE (NEGATIVE); *UROBILINOGEN,URINE 0.2 E.U./dl (NORMAL); LEUKOCYTE ESTERASE ,URINE NEGATIVE (NEGATIVE); NITRITE, URINE NEGATIVE (NEGATIVE); UGLUCOSE NEGATIVE (NEGATIVE)
[2022-08-03 11:08] LABS: *URINE HCG, QUAL NEGATIVE (NEGATIVE)
[2022-08-03 11:13] LABS: CARBON DIOXIDE 24 mmol/L (21-32); CHLORIDE 101 mmol/L (98-107); CREATININE 0.7 mg/dL (0.6-1.3); GLUCOSE 110 mg/dL (74-106); POTASSIUM 3.8 mmol/L (3.5-5.1); UREA NITROGEN, BLOOD 10 mg/dL (7-18)
[2022-08-03 11:26] LABS: BACTERIA,URINE MODERATE /HPF (NONE SEEN); COARSE GRANULAR CASTS,URINE FEW /LPF; SQUAMOUS EPITHELIAL CELL,UR MODERATE /HPF (NONE SEEN); WBC,URINE NONE SEEN /HPF (0-3)
[2022-08-03 11:27] LABS: RED BLOOD CELL CASTS,URINE FEW /LPF (NONE SEEN)
[2022-08-03 11:28] LABS: ALANINE AMINOTRANSFERASE 40 U/L (14-59); ALKALINE PHOSPHATASE 92 U/L (50-136); ASPARTATE AMINOTRANSFERASE 32 U/L (15-37); BILIRUBIN,DIRECT 0.1 mg/dL (0.0-0.2); BILIRUBIN,TOTAL 0.5 mg/dL (0.2-1.0); TOTAL PROTEIN, SERUM 8.2 g/dL (6.4-8.2)
[2022-08-03 11:28] LABS: *AMPHETAMINE, URINE NEGATIVE (NEGATIVE); *CANNABINOID, URINE POSITIVE (NEGATIVE); *COCCAINE, URINE NEGATIVE (NEGATIVE); *PHENCYCLIDINE SCREEN,URINE NEGATIVE (NEGATIVE)
[2022-08-03 11:29] LABS: ACETAMINOPHEN < 10.0 ug/mL (10-30)
[2022-08-03 11:36] LABS: ETHANOL 349 MG/DL (0-0)
--- NOTE | 2022-08-03 11:45 | NUR ---
Pt wanted to go home AMA. explained to pt that since her Blood alcohol level was so high, she could could not go on her own, but could have a relative pick her up. Pt twice tried to leave but staff and security disuaded her. She is trying to make arrangements for pick-up.
--- NOTE | 2022-08-03 11:49 | NUR ---
Patient wants to leave ER, Dr Cook notified. Security assistance requested.
--- NOTE | 2022-08-03 12:20 | NUR ---
Pt states she is not having suicidal thoughts or intentions of following through. Also states she has plans for follow-up care. Released pt into custody of pt's mother. Gave pt. d/c instructions, pt. verbalized understanding. Instructed not to drive.
== END 2022-08-03 12:24 | disposition home or self-care (01) ==
LOC: ER 10:37
DX: F41.9 Anxiety disorder, unspecified (principal); R45.851 Suicidal ideations; R31.29 Other microscopic hematuria; R03.0 Elevated blood-pressure reading, without diagnosis of hypertension; F17.210 Nicotine dependence, cigarettes, uncomplicated; F31.9 Bipolar disorder, unspecified; Z98.84 Bariatric surgery status; F10.129 Alcohol abuse with intoxication, unspecified; Y90.8 Blood alcohol level of 240 mg/100 ml or more; Z79.890 Hormone replacement therapy; Z79.899 Other long term (current) drug therapy
CPT/HCPCS: 36415; 84443; 84703; 85025; A4663; G0480

== ENCOUNTER 2022-09-04 04:22 | Emergency (ER) | payer MEDICAID ==
[~2022-09-04] VITALS: Ht 160 cm; Wt 81.6 kg
--- NOTE | 2022-09-04 04:49 | NUR ---
Dr. Morris evaluating patient at bedside. MSE in progress.
[2022-09-04] MEDS ORDERED: OXYC-128 PO (04:52)
[2022-09-04] MEDS ORDERED: ONDA4TAB5 PO ×2 (04:52→05:35)
[2022-09-04] MEDS ORDERED: ONDANSETRON ODT 4 MG TAB.RAPDIS ONE (04:57)
[2022-09-04] MEDS ORDERED: HYDROMORPHONE 2 MG/1 ML DISP.SYRIN ONE (04:58)
[2022-09-04] MEDS ORDERED: ONDANSETRON ODT 4 MG TAB.RAPDIS SL ONE (05:00)
[2022-09-04] MEDS ORDERED: HYDROMORPHONE 1 MG/1 ML DISP.SYRIN IM ONE (05:00)
--- NOTE | 2022-09-04 06:18 | NUR ---
Patient discharged to home in stable condition. Written and verbal after care instructions given. Patient verbalizes understanding of instructions. Stressed follow up or return to ER for worsening s/s. Addendum: 09/04/22 at 0619 by NATI Patient instructed not to drive.
[2022-09-04 06:19] VITALS: BP 135/77
== END 2022-09-04 06:20 | disposition home or self-care (01) ==
LOC: ER 04:26
DX: R68.84 Jaw pain (principal); E03.9 Hypothyroidism, unspecified; F17.290 Nicotine dependence, other tobacco product, uncomplicated; Z71.6 Tobacco abuse counseling; Z79.899 Other long term (current) drug therapy; Z79.2 Long term (current) use of antibiotics
CPT/HCPCS: 99283; 99406; 96372; J1170; A4663; Q0162

== ENCOUNTER 2022-10-23 15:50 | Emergency (ER) | payer MEDICAID, OTHER ==
[~2022-10-23] VITALS: Ht 160 cm; Wt 81.6 kg
[~2022-10-23 15:50] MED LIST changes: +ONDA4TAB5 PO; +OXYC-128 PO
[2022-10-23 16:23] LABS: HEMATOCRIT 41.6 % (31.2-41.9); MEAN CORPUSCULAR HEMOGLOBIN 26.8 uug (24.7-32.8); PLATELET COUNT (AUTO) 437 K/uL (179-408)
--- NOTE | 2022-10-23 16:30 | NUR ---
BIB [facility] from home with c/o chest pain, headache, anxiety and ETOH intoxication, pt to room 2B via EMS gurney. Pt arrives A/OX4, states she drinks alcohol on a regular basis. Pt states her chest pain has resolved but she has a headache and is feeling anxious. EKG done and handed to ER physician. Placed on cont furniture painter, pulse ox and BP.
[2022-10-23 16:51] LABS: CARBON DIOXIDE 27 mmol/L (21-32); CHLORIDE 104 mmol/L (98-107); CREATININE 0.7 mg/dL (0.6-1.3); GLUCOSE 109 mg/dL (74-106); POTASSIUM 4.7 mmol/L (3.5-5.1); UREA NITROGEN, BLOOD 10 mg/dL (7-18)
--- NOTE | 2022-10-23 18:00 | NUR ---
Pt resting in gurney with eyes closed with no s/s of distress noted.
[2022-10-23] MEDS ORDERED: KETOROLAC TROMETHAMINE 15 MG INJ ONE (18:45)
[2022-10-23] MEDS ORDERED: KETOROLAC TROMETHAMINE 15 MG INJ IVP ONE (18:45)
--- NOTE | 2022-10-23 19:38 | NUR ---
Patient discharged to home in stable condition. Written and verbal after care instructions given. Patient verbalizes understanding of instructions. Stressed follow up or return to ER for worsening s/s. Patient is a/ox4, NAD noted, patient ambulated with steady gait
--- NOTE | 2022-10-23 19:39 | NUR ---
Patient discharged to home in stable condition. Written and verbal after care instructions given. Patient verbalizes understanding of instructions. Stressed follow up or return to ER for worsening s/s. All belongings with patient.
[2022-10-23 19:40] VITALS: BP 143/90
== END 2022-10-23 19:40 | disposition home or self-care (01) ==
LOC: ER 15:52
DX: R07.89 Other chest pain (principal); I25.10 Atherosclerotic heart disease of native coronary artery without angina pectoris; F10.129 Alcohol abuse with intoxication, unspecified; E03.9 Hypothyroidism, unspecified; F17.210 Nicotine dependence, cigarettes, uncomplicated; Z79.899 Other long term (current) drug therapy; Y90.9 Presence of alcohol in blood, level not specified
CPT/HCPCS: 99285; 96374; 71045; 80048; 83880; 84443; 85025; 84484 ×2; 36415; 93005; J1885; A4663

== ENCOUNTER 2024-04-26 13:10 | Emergency (ER) | payer OTHER ==
[~2024-04-26] VITALS: Ht 160 cm; Wt 68.0 kg
[2024-04-26 14:02] LABS: BASOPHILS % (AUTO) 0.1 % (0.0-2.0); HEMATOCRIT 31.6 % (31.2-41.9); LYMPHOCYTES # (AUTO) 1.2 K/uL (0.8-4.8); LYMPHOCYTES % (AUTO) 5.4 % (20.5-51.5); MEAN CORPUSCULAR HEMOGLOBIN 22.9 uug (24.7-32.8); MEAN CORPUSCULAR HGB CONC 32 g/dL (32.3-35.6); MEAN CORPUSCULAR VOLUME 72.6 fL (75.5-95.3); MONOCYTES # (AUTO) 1.8 K/uL (0.1-1.30); MONOCYTES % (AUTO) 8.4 % (0.0-11.0); NEUTROPHILS # (AUTO) 18.7 K/uL (1.8-8.9); NEUTROPHILS % (AUTO) 86.1 % (38.5-71.5); PLATELET COUNT (AUTO) 224 K/uL (179-408); RED BLOOD CELL COUNT(AUTO) 4.35 MIL/uL (3.63-4.92); RED CELL DISTRIBUTION WIDTH 17.5 % (12.3-17.7); WHITE BLOOD COUNT (AUTO) 21.7 K/uL (3.8-11.8)
[2024-04-26 14:04] LABS: DIFFERENTIAL COMMENT 1
[2024-04-26 14:10] LABS: *BILIRUBIN,URIN NEGATIVE (NEGATIVE); *BLOOD, URINE 1+ (NEGATIVE); *CLARITY,URINE CLEAR (CLEAR); *COLOR,URINE YELLOW (YELLOW); *KETONES,URINE NEGATIVE (NEGATIVE); *PROTEIN,URINE 2+ (NEGATIVE); *UROBILINOGEN,URINE 0.2 E.U./dl (NORMAL); LEUKOCYTE ESTERASE ,URINE 1+ (NEGATIVE); NITRITE, URINE NEGATIVE (NEGATIVE); PH,URINE 6.5 (5.0-8.0); UGLUCOSE NEGATIVE (NEGATIVE)
[2024-04-26] MEDS: IV NORMAL SALINE 1000 ML BAG IV ONE (14:17)
[2024-04-26 14:20] LABS: RBC,URINE 0-3 /HPF (0-3)
[2024-04-26 14:21] LABS: BACTERIA,URINE MODERATE /HPF (NONE SEEN); SQUAMOUS EPITHELIAL CELL,UR FEW /HPF (NONE SEEN); YEAST,URINE RARE /HPF (NONE SEEN)
[2024-04-26] MEDS ORDERED: ACETAMINOPHEN 500 MG TABLET ONE (14:21)
[2024-04-26] MEDS ORDERED: PIPERACILLIN/TAZOBACTAM/D5W 50 ML IV ONE (14:21)
[2024-04-26] MEDS ORDERED: ONDANSETRON 4 MG/2 ML VIAL ONE (14:21)
[2024-04-26] MEDS ORDERED: MORPHINE SULFATE 4 MG/1 ML DISP.SYRIN ONE ×2 (14:22→16:21)
[2024-04-26] MEDS: PIPERACILLIN SODIUM/TAZOBACTAM 3.375 G in IV DEXTROSE 5% 50 ML IV ONE (14:31)
[2024-04-26] MEDS: ACETAMINOPHEN 500 MG TABLET PO ONE (14:31)
[2024-04-26] MEDS: ONDANSETRON 4 MG/2 ML VIAL IV ONE (14:31)
[2024-04-26] MEDS: MORPHINE SULFATE 4 MG/1 ML DISP.SYRIN IV ONE ×2 (14:31→16:31)
[2024-04-26] MEDS ORDERED: VANCOMYCIN IV 200 ML ONE (14:33)
[2024-04-26 14:37] LABS: ALANINE AMINOTRANSFERASE 22 U/L (14-59); ALBUMIN 2.9 g/dL (3.4-5.0); ALKALINE PHOSPHATASE 87 U/L (50-136); ASPARTATE AMINOTRANSFERASE 14 U/L (15-37); BILIRUBIN,DIRECT 0.2 mg/dL (0.0-0.2); BILIRUBIN,TOTAL 0.3 mg/dL (0.2-1.0); CALCIUM 9.3 mg/dL (8.5-10.1); CARBON DIOXIDE 21 mmol/L (21-32); CHLORIDE 102 mmol/L (98-107); POTASSIUM 3.1 mmol/L (3.5-5.1); SODIUM SERUM 137 mmol/L (136-145); TOTAL PROTEIN, SERUM 7.6 g/dL (6.4-8.2); UREA NITROGEN, BLOOD 10 mg/dL (7-18)
[2024-04-26 14:46] LABS: GLUCOSE 119 mg/dL (74-106)
[2024-04-26 14:50] LABS: *URINE HCG, QUAL NEGATIVE (NEGATIVE)
[2024-04-26] MEDS: VANCOMYCIN IV 1,000 MG in IV DEXTROSE 5% 250 ML IV ONE (14:58)
[2024-04-26] MEDS ORDERED: SWABABLE VALVE TRANSFER SET EA MC ONE (15:01)
[2024-04-26] MEDS ORDERED: IOHEXOL 300MG/ML 100 ML INFUS..BTL ONE (15:01)
[2024-04-26] MEDS ORDERED: IV NORMAL SALINE 250 ML IV ONE (15:01)
[2024-04-26] MEDS ORDERED: KETOROLAC TROMETHAMINE 15 MG INJ ONE (16:20)
[2024-04-26] MEDS ORDERED: CEFD300C3 PO (16:28)
[2024-04-26] MEDS ORDERED: IBUP-1955 PO (16:28)
[2024-04-26] MEDS ORDERED: HYDR-4209 PO (16:28)
[2024-04-26] MEDS ORDERED: ONDA4TAB5 PO (16:31)
[2024-04-26] MEDS: KETOROLAC TROMETHAMINE 15 MG INJ IVP ONE (16:31)
[2024-04-26 17:07] VITALS: BP 108/76; O2SAT 95
== END 2024-04-26 17:09 | disposition home or self-care (01) ==
LOC: ER 13:10 → EDBD 13:10 → ER 17:09
DX: N12 Tubulo-interstitial nephritis, not specified as acute or chronic (principal); N64.4 Mastodynia; F31.9 Bipolar disorder, unspecified; E03.9 Hypothyroidism, unspecified; R10.2 Pelvic and perineal pain; E66.9 Obesity, unspecified; F17.210 Nicotine dependence, cigarettes, uncomplicated; F41.9 Anxiety disorder, unspecified; Z79.890 Hormone replacement therapy; Z87.440 Personal history of urinary (tract) infections; Z68.26 Body mass index [BMI] 26.0-26.9, adult; Z79.899 Other long term (current) drug therapy; Z88.7 Allergy status to serum and vaccine
CPT/HCPCS: 36415; 71045; 71260; 83605; 84443; 84484; 84703; 85025; 85730; 87040; A4606; A4663; A9150; J1885; J2270; J2405; J2543; J3370; J7040; Q9967

== ENCOUNTER 2024-07-30 16:35 | Emergency (ER) | payer OTHER ==
[~2024-07-30] VITALS: Ht 160 cm; Wt 79.4 kg
[~2024-07-30 16:35] MED LIST changes: +CEFD300C3 PO; +HYDR-4209 PO; +IBUP-1955 PO
[2024-07-30] MEDS ORDERED: AMOXICILLIN-CLAVUL 875-125MG TABLET ONE (17:13)
[2024-07-30] MEDS ORDERED: OXYCODONE/APAP 5-325 MG TABLET ONE (17:13)
[2024-07-30] MEDS: AMOXICILLIN-CLAVUL 875-125MG TABLET PO ONE (17:14)
[2024-07-30] MEDS: OXYCODONE/APAP 5-325 MG TABLET PO ONE (17:15)
[2024-07-30] MEDS ORDERED: AMOX-430 PO (17:18)
[2024-07-30] MEDS ORDERED: OXYC-128 PO (17:18)
[2024-07-30 17:27] VITALS: BP 148/81; TEMP 98; O2SAT 99
== END 2024-07-30 17:28 | disposition home or self-care (01) ==
LOC: ER 16:35
DX: K08.89 Other specified disorders of teeth and supporting structures (principal); F17.210 Nicotine dependence, cigarettes, uncomplicated; F41.9 Anxiety disorder, unspecified; Z79.890 Hormone replacement therapy; Z79.899 Other long term (current) drug therapy; Z98.84 Bariatric surgery status; Z88.7 Allergy status to serum and vaccine
CPT/HCPCS: A4606; A4663